=== PATIENT | male | born 1960 | race Hispanic/Latino ===

== ENCOUNTER 2016-10-11 19:20 | Emergency (ER) | payer OTHER ==
[~2016-10-11 19:20] MED LIST: ALBUTEROL0.09 MG/A1 INH; ALLOPURINOL300 M1 PO; ASPIRIN EC81 M1 PO; CRESTOR10 M1 PO; DULOXETINE HCL60 MG PO; EXFORGE 10-1601 EACH PO; HYDROXYZINE HCL50 M1 PO; MEDROL DOSEPAK1 PAC PO; MOTRIN800 MG PO; OMEGA-3 ACID ETH1 GM PO; PERCOCET 325 MG1 TA2 PO; PROVENTIL HFA6.7 GM INH; ROBITUSSIN W/CO10 ML PO; SPIRIVA18 MCG INH; TESSALON PERLE100 MG PO; VALIUM5 M1 PO
--- NOTE | 2016-10-11 20:39 | RADIOLOGY REPORT ---
EXAMINATION: XR RIBS, RIGHT CLINICAL INFORMATION: Pain after a fall COMPARISON: None TECHNIQUE: PA chest. 3 oblique views of the right ribs. FINDINGS: Lungs are clear. No consolidation, pneumothorax, or pleural effusion. The cardiomediastinal silhouette and pulmonary vasculature are normal. Osseous structures are unremarkable. Ribs are intact. No fractures are identified. IMPRESSION: Unremarkable examination.
--- NOTE | 2016-10-11 20:52 | ED MVC/FALL/TRAUMA COMPLAINT ---
History of Present Illness General Chief Complaint: Fall Stated Complaint: RIGHT SIDE PAIN Source: patient Exam Limitations: no limitations Allergies Coded Allergies: NO KNOWN ALLERGIES (11/22/12) Triage Note: PER PT FELL DOWN STAIRS STRIKING RT SIDE CONCRETE STEPS NO HEADSTRIKE NO LOC Triage Nurses Notes Reviewed? yes HPI: This patient is a 56-year-old male who presented to the emergency department today after he fell down one concrete step today landing on his right side. The patient reported that he is having 8 out of 10 pain in his right side which is worse with inspiration. No palliative factors. The pain is constant and sharp. He denied head strike or loss of consciousness. The patient denied any chest pain, difficulty breathing, headaches, visual changes, abdominal, or any other associated symptoms. (PRIYANK VALENTINE,GABRIEL) Vital Signs & Intake/Output Vital Signs & Intake/Output Vital Signs Date Time Temp Pulse Resp B/P Pulse O2 O2 Flow FiO2 Ox Delivery Rate 10/12 2119 98.3 79 22 130/74 96 10/12 1939 97.8 80 20 134/78 96 Reconcile Medications Albuterol Sulfate (Proventil Hfa) 6.7 GM HFA.AER.AD 2 PUF INH AD PRN COPD ( Reported) Allopurinol 300 MG TABLET 1 TAB PO DAILY GOUT (Reported) Amlodipine/Valsartan (Exforge 10-160 MG Tablet) 1 EACH TABLET 1 TAB PO DAILY BP (Reported) Aspirin (Ecotrin*) 81 MG TABLET.DR 1 TAB PO DAILY BLOOD/HEART (Reported) Duloxetine HCl 60 MG CAPSULE.DR 1 CAP PO DAILY MENTAL HEALTH (Reported) Hydroxyzine HCl 50 MG TABLET 1 TAB PO BID ANXIETY (Reported) Palmetto-3 Acid Ethyl Esters 1 GM CAPSULE 2 CAP PO BID CHOLESTEROL (Reported) Rosuvastatin Calcium (Crestor) 10 MG TABLET 1 TAB PO DAILY CHOLESTEROL ( Reported) Tiotropium [place] (Spiriva) 18 MCG CAP.W.DEV 1 CAP INH DAILY COPD (Reported) Tramadol HCl 50 MG TABLET 1 TAB PO BIDP PRN pain (HEIDI ALBARADO,MARQUES) Past History Travel History Traveled to [place] past 21 day No Medical History Any Pertinent Medical History? see below for history Neurological: NONE EENT: NONE Cardiovascular: hypertension, HIGH CHOLESTEROL Respiratory: SLEEP [id number] Gastrointestinal: NONE Hepatic: NONE Renal: NONE Musculoskeletal: gout Psychiatric: depression Endocrine: NONE Blood Disorders: NONE Cancer(s): NONE [employer]/Reproductive: NONE History of MRSA: No History of VRE: No History of CDIFF: No Tetanus Vaccine: 11/22/12 Surgical History Surgical History: non-contributory Psychosocial History Who do you live with Son Services at Home None What is your primary language Stateless Tobacco Use: Current Daily Use Daily Tobacco Use Amount/Type: => 5 Cigarettes daily Family History Hx Contributory? No (GABRIEL YOST PA-C) Review of Systems Review of Systems Constitutional: Reports: no symptoms. Eyes: Reports: no symptoms. Ears, Nose, Throat, Mouth: Reports: no symptoms. Respiratory: Reports: no symptoms. Cardiovascular: Reports: no symptoms, see HPI, chest pain, edema, orthopena, palpitations, peripheral edema, syncope. Gastrointestinal/Abdominal: Reports: no symptoms. Musculoskeletal: Reports: see HPI. Skin: Reports: no symptoms. Neurological/Psychological: Reports: no symptoms. All Other Systems: Reviewed and Negative (GABRIEL YOST PA-C) Physical Exam Physical Exam General Appearance: well developed/nourished, no apparent distress, alert, awake Comments: Well-developed well-nourished person in no acute distress HEENT: Normal EENT exam, head normocephalic, moist mucous membranes Pupils equally round and reactive to light. Neck: Supple. No midline tenderness Back: Normal inspection. Normal gait Cardiovascular: Regular rate and rhythm with no murmurs, rubs or gallops Respiratory: Tenderness to palpation over the sixth and seventh ribs on the right side, mid axillary line. No respiratory distress. Breath sounds clear to auscultation bilaterally with no wheezes, rales, or rhonchi. No diminished breath sounds. Abdomen: Soft, nontender and nondistended Extremity: No edema, no calf tenderness to palpation, normal and equal pulses. Neuro: Alert oriented x3, cranial nerves II through XII grossly intact. Skin: No appreciable rash on exposed skin, skin is warm and dry. Psych: Mood and affect is normal Core Measures ACS in differential dx? No Severe Sepsis Present: No Septic Shock Present: No (GABRIEL YOST PA-C) Progress Differential Diagnosis: aoritic dissection, abd injury, C/T/L spine injury, ext injury, ICH, pelvis injury, pnemothorax, spinal cord injury, contusion Plan of Care: Current Medications Sig/Maci Start time Last Medication Dose Stop Time Status Admin Oxycodone/ 1 TAB ONCE ONE 10/11 2099 UNVr Acetaminophen 10/11 2100 (Percocet) Departure Departure Disposition: HOME OR SELF CARE Condition: Stable Clinical Impression Primary Impression: Contusion Qualifiers: Encounter type: initial encounter Contusion area: thoracic wall Contusion of thoracic wall detail: unspecified area of thoracic wall Qualified Code: S20.20XA - Contusion of thorax, unspecified, initial encounter Referrals: MAREN TRAN MD (PCP/Family) Additional Instructions: Please take medication for pain as prescribed. Use incentive spirometer as directed. You may apply ice to the affected area as needed. Avoid any heavy lifting or strenuous activity. As discussed, although your x-ray did not reveal any fractures or breaks, small breaks can be missed; if your symptoms persist after 7 days, please return to the emergency department for further evaluation. Departure Forms: Customer Survey General Discharge Information Prescriptions: Current Visit Scripts Tramadol HCl 1 TAB PO BIDP PRN pain #6 TAB (PRIYANK VALENTINE,GABRIEL) PA/CLOTH SHADER Co-Sign Statement Statement: ED Attending supervision documentation- [] I saw and evaluated the patient. I have also reviewed all the pertinent lab results and diagnostic results. I agree with the findings and the plan of care as documented in the PA's/CLOTH SHADER's documentation. x I have reviewed the ED Record and agree with the PA's/CLOTH SHADER's documentation. [] Additions or exceptions (if any) to the PAs/CLOTH SHADER's note and plan are summarized below: [] (HEIDI ALBARADO,MARQUES)
[2016-10-11] MEDS ORDERED: TRAMADOL HCL50 M1 PO (20:56)
[2016-10-11 21:20] VITALS: BP 130/74
== END 2016-10-11 21:21 ==
LOC: ERH 19:20
DX: S20.20XA Contusion of thorax, unspecified, initial encounter (principal); W10.9XXA Fall (on) (from) unspecified stairs and steps, initial encounter
CPT/HCPCS: 71100-RT